=== PATIENT | female | born 1990 | race Two or more races ===

== ENCOUNTER 2020-06-08 19:36 | Emergency (ER) | payer SELFPAY ==
[~2020-06-08] VITALS: Ht 165.1 cm; Wt 63.8 kg
--- NOTE | 2020-06-08 20:08 | NUR ---
INTERMITTENT DIZZINESS X THREE WEEKS SINCE RECEIVING COVID VACCINE. +CHEST PAIN +, . DENIES FEVER/N/V.
--- NOTE | 2020-06-08 20:11 | NUR ---
KALEN HERRERA AT BS AT THIS TIME
[2020-06-08] MEDS ORDERED: ONDANSETRON 2MG/ML, 2ML IVPush ONE (20:30)
[2020-06-08] MEDS ORDERED: SODIUM CHLORIDE 0.9% 1,000ML IVBOLUS ONE (20:30)
[2020-06-08] MEDS ORDERED: ONDANSETRON 2MG/ML, 2ML ONE (20:33)
--- NOTE | 2020-06-08 20:39 | NUR ---
LABS DRAWN AND SENT PIV PLACED AND MEDICATED PER APR PT IN [facility]
[2020-06-08 20:46] LABS: BASOPHILS % (AUTO) 1 % (0-1); EOSINOPHILS % (AUTO) 1 % (1-7); LYMPHOCYTES % (AUTO) 23 % (22-44); MEAN CORPUSCULAR HEMOGLOBIN 29.3 pg (27.0-34.8); MEAN CORPUSCULAR HGB CONC 33.5 g/dL (32.4-35.8); MEAN PLATELET VOLUME 7.8 fL (7.4-10.4); MONOCYTES % (AUTO) 6 % (2-9); NEUTROPHILS % (AUTO) 71 % (42-75); PLATELET COUNT 319 x10^3/uL (130-400); RED BLOOD COUNT 4.23 x10^6/uL (3.82-5.3); RED CELL DISTRIBUTION WIDTH 12.8 % (9.6-15.2)
[2020-06-08 20:47] LABS: MD NO
[2020-06-08 20:56] LABS: ALANINE AMINOTRANSFERASE 90 U/L (12-78); ALBUMIN 3.7 g/dL (3.4-5.0); ANION GAP 6 mmol/L (5-15); CALCIUM 8.7 mg/dL (8.5-10.1); CHLORIDE 108 mmol/L (98-107); CREATININE 0.58 mg/dL (0.55-1.02)
--- NOTE | 2020-06-08 21:00 | NUR ---
US AT BED SIDE AT THIS TIME
[2020-06-08 21:14] LABS: ALKALINE PHOSPHATASE 75 U/L (45-117); BILIRUBIN,TOTAL 0.3 mg/dL (0.2-1.0); TOTAL PROTEIN 7.3 g/dL (6.4-8.2)
--- NOTE | 2020-06-08 21:20 | NUR ---
REPORT FROM LORENA MIRZA. US AT BEDSIDE.
--- NOTE | 2020-06-08 21:43 | NUR ---
Pt up ambulates to br, urine cup provided with instruct. Specimens sent to lab via tube sx. Pt off to CT in [place] with tech.
--- NOTE | 2020-06-08 21:44 | NUR ---
Back from CT.
[2020-06-08 21:50] LABS: MICROSCOPIC NOT IND
[2020-06-08 22:25] VITALS: BP 104/70
--- NOTE | 2020-06-08 22:25 | NUR ---
PT RESTING IN [place] NOTED. FRIEND AT BEDSIDE. FRIEND/PT UPDATED TO POC (RESULTS/RECHECK) AND DEMONSTRATES UNDERSTANDING.
--- NOTE | 2020-06-08 23:32 | NUR ---
DC EDUCATION PROVIDED BY ERP IN J[place]. PT DEMONSTRATES UNDERSTANDING. PT OFF MONITORING AND DRESSING INDEPENDENTLY.
--- NOTE | 2020-06-08 23:48 | NUR ---
PT AMBULATED STEADILY TO DC WO CO WEAKNESS/DIZZINESS. FAMILY TO TRANSPORT PT HOME
== END 2020-06-08 23:57 | disposition home or self-care (01) ==
LOC: ED 20:36
DX: O26.891 Other specified pregnancy related conditions, first trimester (principal); R51.9 Headache, unspecified; R10.2 Pelvic and perineal pain; R11.0 Nausea; R42 Dizziness and giddiness; R55 Syncope and collapse; Z3A.12 12 weeks gestation of pregnancy
CPT/HCPCS: 36415; 70450; 76801; 80053; 81003; 84702; 85025; 86901; 93005; 96374; 99285; J2405; J7030